=== PATIENT | male | born 1985 ===

== ENCOUNTER 2023-02-28 10:02 | Emergency (ER) | payer OTHER ==
[~2023-02-28] VITALS: Ht 170.2 cm; Wt 75.5 kg
[2023-02-28 10:10] VITALS: BP 111/70; PULSE 87; RESP 16; TEMP 99.3
== END 2023-02-28 13:42 | disposition left against medical advice (07) ==
LOC: EMS 10:14
DX: R22.33 Localized swelling, mass and lump, upper limb, bilateral (principal); Z53.21 Procedure and treatment not carried out due to patient leaving prior to being seen by health care provider
CPT/HCPCS: 99281; 73130-TC; Z7502